=== PATIENT | male | born 1980 | race Caucasian/White ===

== ENCOUNTER 2023-12-16 03:31 | Emergency (ER) | payer MEDICAID ==
[~2023-12-16] VITALS: Ht 152.4 cm; Wt 136.0 kg
[2023-12-16 03:35] VITALS: TEMP 98.7; O2SAT 100
[2023-12-16] MEDS ORDERED: LIDO700A30 TP (07:37)
[2023-12-16] MEDS ORDERED: IBUP-2029 MT (07:37)
[2023-12-16 08:08] VITALS: BP 122/78; PULSE 72; RESP 20
== END 2023-12-16 08:11 | disposition home or self-care (01) ==
LOC: ER 03:44
DX: M79.651 Pain in right thigh (principal)
CPT/HCPCS: 99282